=== PATIENT | male | born 1960 | race Caucasian/White ===

== ENCOUNTER 2017-07-22 12:01 | Emergency (ER) | payer MEDICARE | END 2017-07-22 12:31 | disposition home or self-care (01) | LOC: BURERS 12:01 | DX: S73.102A Unspecified sprain of left hip, initial encounter (principal); J44.9 Chronic obstructive pulmonary disease, unspecified; Z79.899 Other long term (current) drug therapy; W01.0XXA Fall on same level from slipping, tripping and stumbling without subsequent striking against object, initial encounter | CPT/HCPCS: 99283 ==

== ENCOUNTER 2018-07-07 11:26 | Inpatient (IN) | payer MEDICARE ==
[2018-07-07 12:17] LABS: ALT (SGPT) 20 U/L (8-55); AST (SGOT) 38 U/L (5-34); Albumin 3.8 g/dL (3.5-5.0); Alkaline Phosphatase 81 U/L (40-150); Anion Gap 13 mmol/L (10-20); BUN (Urea Nitrogen) 7 mg/dL (8.4-25.7); Bilirubin, Total 0.9 mg/dL (0.2-1.2); Calc. Creatinine Clearance 0 mL/min (70-130); Calcium 9.7 mg/dL (7.8-10.44); Carbon Dioxide 28 mmol/L (22-29); Chloride 102 mmol/L (98-107); Estimated GFR-MDRD Greater than 90; Globulin 3.8 g/dL (2.4-3.5); Glucose 107 mg/dL (70-105); Protein, Total 7.6 g/dL (6.0-8.3); Sodium 139 mmol/L (136-145)
[2018-07-07 12:21] LABS: Mean Corpuscular HGB CONC 33.2 g/dL (32.0-36.0); Mean Corpuscular Hemoglobin 31.1 pg (27.0-31.0); Mean Corpuscular Volume 93.6 fL (78.0-98.0); Mean Platelet Volume 7.2 fL (7.4-10.4); Platelet Count 227 thou/uL (130-400); RBC Distribution Width 12.9 % (11.5-14.5); Red Blood Cell (RBC) Count 5.15 mill/uL (4.70-6.10); White Blood Cell (WBC) Count 6.8 thou/uL (4.8-10.8)
[2018-07-07 13:09] LABS: Eosinophils 8 % (0-10); Lymphocytes 24 % (21-51); MDiff Complete? YES; Monocytes 11 % (0-10); Neutrophil 57 % (42-75)
[2018-07-07 14:12] VITALS: BMI 25.4
[2018-07-07 15:11] LABS: Bilirubin Negative (Negative); Blood, Urine Negative (Negative); Clarity Clear (Clear); Glucose, Urine (Dipstick) Negative (Negative); Leukocyte Negative (Negative); Nitrite Negative (Negative); Protein, Urine (Dipstick) Negative (Neg-Trace); pH, Urine 6.5 (5.0-9.0)
[2018-07-07] MEDS ORDERED: Ondansetron ODT 4 MG TAB SL PRN (15:42)
[2018-07-07] MEDS ORDERED: Acetaminophen 325 MG TAB PO PRN (15:42)
[2018-07-07] MEDS ORDERED: Ondansetron PF 4 MG/2 ML Vial IVP PRN (15:42)
[2018-07-07] MEDS: cefTRIAXone\\ROCEPHIN 1 GM in Sodium Chloride 0.9% 100 ML IVPB SCH (16:33)
--- NOTE | 2018-07-07 17:49 | RAD ---
LEFT LEG TWO VIEWS: Date: 07-07-18 FINDINGS: No fracture or area of bony destruction was seen. No periosteal reaction of concern was noted at this time. The bones appear intact. IMPRESSION: No acute bony finding. POS: HOME
[2018-07-07] MEDS ORDERED: fentaNYL 50 mcg/hour Patch TD SCH (18:00)
[2018-07-07] MEDS ORDERED: ALPRAZolam 0.5 MG TAB PO SCH ×2 (19:15→21:00)
[2018-07-07] MEDS: Famotidine 20 MG TAB PO SCH (20:17)
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
[2018-07-07] MEDS ORDERED: Clindamycin 150 MG CAP PO SCH (21:00)
[2018-07-08] MEDS: Vancomycin HCl 1 GM in Sodium Chloride 0.9% 250 ML 250 ML IVPB SCH ×2 (00:45→12:58)
[2018-07-08] MEDS: Morphine ER 15 MG TAB PO PRN ×2 (02:39→14:27)
[2018-07-08 05:11] LABS: #Basophils 0.1 thou/uL (0.0-0.2); #Eosinphils 0.6 thou/uL (0.0-0.7); #Lymphocytes 1.9 thou/uL (1.20-3.40); #Monocytes 0.5 thou/uL (0.11-0.59); #Neutrophils 4.4 thou/uL (1.40-6.50); %Basophils 1.6 % (0.0-1.0); %Eosinophils 8.4 % (0.0-10.0); %Monocytes 6.9 % (0.0-10.0); %Neutrophils 58.2 % (42.0-75.0); Hemoglobin 13.9 g/dL (14.0-18.0); Mean Corpuscular HGB CONC 33.4 g/dL (32.0-36.0); Mean Corpuscular Hemoglobin 31.3 pg (27.0-31.0); Mean Corpuscular Volume 93.6 fL (78.0-98.0); Mean Platelet Volume 6.7 fL (7.4-10.4); Platelet Count 187 thou/uL (130-400); RBC Distribution Width 12.7 % (11.5-14.5); Red Blood Cell (RBC) Count 4.44 mill/uL (4.70-6.10); White Blood Cell (WBC) Count 7.6 thou/uL (4.8-10.8)
[2018-07-08 05:26] LABS: ALT (SGPT) 16 U/L (8-55); AST (SGOT) 31 U/L (5-34); Albumin 3.3 g/dL (3.5-5.0); Alkaline Phosphatase 69 U/L (40-150); Anion Gap 11 mmol/L (10-20); BUN (Urea Nitrogen) 5 mg/dL (8.4-25.7); Bilirubin, Total 0.6 mg/dL (0.2-1.2); Calc. Creatinine Clearance 135 mL/min (70-130); Calcium 9.2 mg/dL (7.8-10.44); Carbon Dioxide 27 mmol/L (22-29); Chloride 106 mmol/L (98-107); Estimated GFR-MDRD Greater than 90; Glucose 107 mg/dL (70-105); Potassium 3.8 mmol/L (3.5-5.1); Protein, Total 6.3 g/dL (6.0-8.3); Sodium 140 mmol/L (136-145)
[2018-07-08] MEDS: Enoxaparin Sodium 30 MG/0.3 ML SYRINGE SC SCH (09:04)
[2018-07-08] MEDS: Aspirin 325 MG TAB PO SCH (09:04)
[2018-07-08] MEDS: Famotidine 20 MG TAB PO SCH ×2 (09:05→21:04)
[2018-07-08] MEDS: Saccharomyces boulardii 250 MG CAP PO SCH (09:05)
[2018-07-08] MEDS: ALPRAZolam 0.5 MG TAB PO SCH ×3 (09:05→21:03)
[2018-07-08] MEDS ORDERED: VANCOMYCIN IVPB PRN (14:51)
[2018-07-08] MEDS: cefTRIAXone\\ROCEPHIN 1 GM in Sodium Chloride 0.9% 100 ML IVPB SCH (16:22)
[2018-07-08] MEDS: SYMBICORT 80/4.5 INH SCH (18:06)
[2018-07-08] MEDS ORDERED: Mometasone/Formoterol 60 PUFF AER INH SCH (19:00)
[2018-07-09 00:48] LABS: Vancomycin, Trough 9.9 ug/mL
[2018-07-09] MEDS: Vancomycin HCl 1 GM in Sodium Chloride 0.9% 250 ML 250 ML IVPB SCH ×2 (01:18→12:36)
[2018-07-09] MEDS: Morphine ER 15 MG TAB PO PRN ×2 (03:04→11:41)
[2018-07-09 03:17] LABS: Hemoglobin 14.4 g/dL (14.0-18.0); Platelet Count 165 thou/uL (130-400)
[2018-07-09 03:35] LABS: Calc. Creatinine Clearance 133 mL/min (70-130); Estimated GFR-MDRD Greater than 90
[2018-07-09] MEDS: SYMBICORT 80/4.5 INH SCH ×2 (06:05→18:24)
[2018-07-09] MEDS: Enoxaparin Sodium 30 MG/0.3 ML SYRINGE SC SCH (09:16)
[2018-07-09] MEDS: Saccharomyces boulardii 250 MG CAP PO SCH (09:17)
[2018-07-09] MEDS: Aspirin 325 MG TAB PO SCH (09:18)
[2018-07-09] MEDS: ALPRAZolam 0.5 MG TAB PO SCH ×3 (09:18→20:20)
[2018-07-09] MEDS: Famotidine 20 MG TAB PO SCH ×2 (09:18→20:20)
[2018-07-09] MEDS: cefTRIAXone\\ROCEPHIN 1 GM in Sodium Chloride 0.9% 100 ML IVPB SCH (16:25)
[2018-07-10] MEDS: Morphine ER 15 MG TAB PO PRN ×2 (00:37→13:27)
[2018-07-10] MEDS: Vancomycin HCl 1 GM in Sodium Chloride 0.9% 250 ML 250 ML IVPB SCH ×2 (00:37→13:10)
[2018-07-10 02:01] LABS: Vancomycin, Trough 11.2 ug/mL
[2018-07-10 05:51] VITALS: BP 138/69; TEMP 97.7
[2018-07-10] MEDS: SYMBICORT 80/4.5 INH SCH (06:16)
[2018-07-10] MEDS: ALPRAZolam 0.5 MG TAB PO SCH ×2 (09:23→14:29)
[2018-07-10] MEDS: Saccharomyces boulardii 250 MG CAP PO SCH (09:23)
[2018-07-10] MEDS: Famotidine 20 MG TAB PO SCH (09:23)
[2018-07-10] MEDS: Enoxaparin Sodium 30 MG/0.3 ML SYRINGE SC SCH (09:24)
[2018-07-10] MEDS: Aspirin 325 MG TAB PO SCH (09:24)
--- NOTE | 2018-07-11 05:08 | DIS ---
DATE OF ADMISSION: 07/07/2018 DATE OF DISCHARGE: 07/10/2018 ADMISSION DIAGNOSIS: Cellulitis of the left lower extremity with failed outpatient antibiotics. SECONDARY DIAGNOSES: Hypertension, chronic pain syndrome, impairment of gait, and anxiety. PROCEDURE: On 07/07/2018; x-ray of tibia/fibula shows no acute bony finding. HOSPITAL COURSE: A 58-year-old patient of Dr. Mansfield, who presented to [facility] Emergency Department with worsening infection involving his distal anterior left lower extremity. The patient had sustained an abrasion to this area 1 to 2 weeks prior and was seen in the outpatient setting by Dr. Mansfield, who initiated treatment with clindamycin; however, the patient reports gradual worsening of skin findings with further ulceration of the localized wound. Blood and wound cultures were obtained, and the patient was started empirically on Rocephin and vancomycin. He was subsequently admitted secondary to failed outpatient p.o. antibiotics. The patient did remain afebrile during his stay without leukocytosis. He received wound care daily with noted improvement in the appearance of the wound. As far as his cultures, he did have one of two blood cultures show gram-positive cocci. However, this is deemed to be more likely a contaminant secondary to his afebrile state with no leukocytosis. Preliminary bacterial culture revealed Aeromonas hydrophila/caviae and second organism, Pseudomonas putida along with non-hemolytic streptococcus species. These organisms are sensitive to all but ampicillin/sulbactam and cefazolin. Due to the patient's improving status and his wanting to go home, he is agreeable to transition to p.o. antibiotics to take at home based on these cultures with finalization and to be reviewed tomorrow for completeness; he will be discharged home on a course of levofloxacin according to these cultures. He has been set up with [facility] to receive further wound care therapy. DISPOSITION: The patient will be discharged to his home setting and will have [facility] for further wound care therapy. He may follow up with his primary care provider, Dr. Mansfield next week. DISCHARGE MEDICATIONS: Two new medicines will include, 1. Levofloxacin 500 mg p.o. daily x7 days. 2. Florastor 250 mg p.o. b.i.d. x10 days. He will resume his usual medications, which include, 1. Xanax 1 mg p.o. t.i.d. 2. Aspirin 325 mg p.o. daily. 3. Fentanyl patch 75 mcg q.72 hours. 4. Metoprolol succinate 100 mg p.o. daily. 5. Morphine ER 60 mg p.o. b.i.d. p.r.n. Job ID: [id number]
== END 2018-07-10 17:17 | disposition home health service (06) | DRG 603 ==
LOC: BURERS 11:26 → BURMED 13:00
PROVIDERS: ADMIT Family Medicine; ATTEND Family Medicine
DX: L03.116 Cellulitis of left lower limb (principal); I10 Essential (primary) hypertension; F41.9 Anxiety disorder, unspecified; G89.4 Chronic pain syndrome; R26.89 Other abnormalities of gait and mobility; Z87.891 Personal history of nicotine dependence; Z79.82 Long term (current) use of aspirin
CPT/HCPCS: 36415; 80053; 80202; 81003; 82565; 83605; 85014; 85018; 85025; 85049; 87040; 87070; 87077; 87149; 87186; 87205; 97602; J0696; J1650; J3370; J7050

== ENCOUNTER 2019-03-03 15:20 | Inpatient (IN) | payer MEDICARE ==
[2019-03-03 17:09] LABS: Band 3 % (5-11); Eosinophils 2 % (0-10); Hemoglobin 14.2 g/dL (14.0-18.0); Lymphocytes 10 % (21-51); MDiff Complete? YES; Mean Corpuscular HGB CONC 31.7 g/dL (32.0-36.0); Mean Corpuscular Volume 97.8 fL (78.0-98.0); Mean Platelet Volume 7.8 fL (7.4-10.4); Monocytes 6 % (0-10); Neutrophil 79 % (42-75); Platelet Count 184 thou/uL (130-400); RBC Distribution Width 13.3 % (11.5-14.5); Red Blood Cell (RBC) Count 4.59 mill/uL (4.70-6.10); White Blood Cell (WBC) Count 18.3 thou/uL (4.8-10.8)
[2019-03-03 17:12] LABS: Bilirubin Negative (Negative); Blood, Urine Trace (Negative); Clarity Clear (Clear); Glucose, Urine (Dipstick) Negative (Negative); Leukocyte Negative (Negative); Nitrite Negative (Negative); Protein, Urine (Dipstick) Negative (Neg-Trace)
[2019-03-03 17:17] LABS: Bacteria/HPF None Seen HPF (None Seen); Broad Cast None Seen LPF (None Seen); Calcium Oxalate Crystals None Seen HPF (None Seen); Cellular Cast None Seen LPF (None Seen); Epithelial Cast None Seen LPF (None Seen); Fatty Cast None Seen LPF (None Seen); Mucous/LPF None Seen LPF (<2+); Other Casts None Seen LPF (None Seen); Oval Fat Bodies/HPF None Seen HPF (None Seen); RBC/HPF 0-3 HPF (0-3); Red Blood Cell Cast None Seen LPF (None Seen); Renal Epithelial None Seen HPF (None Seen); Sperm/HPF None Seen HPF (None Seen); Squamous Epithelial None Seen HPF (0-3); Transitional Epithelial None Seen HPF (None Seen); Trichomonas/HPF None Seen HPF (None Seen); Triple Phosphate Crystal None Seen HPF (None Seen); Unclassified Crystals None Seen HPF (None Seen); WBC/HPF None Seen HPF (0-3); Waxy Cast None Seen LPF (None Seen); White Blood Cell Cast None Seen LPF (None Seen); Yeast-Budding None Seen HPF (None Seen); Yeast-Hyphae None Seen HPF (None Seen)
[2019-03-03 17:22] LABS: ALT (SGPT) 19 U/L (8-55); AST (SGOT) 31 U/L (5-34); Albumin 3.8 g/dL (3.5-5.0); Alkaline Phosphatase 156 U/L (40-110); Anion Gap 16 mmol/L (10-20); BUN (Urea Nitrogen) 9 mg/dL (8.4-25.7); Bilirubin, Total 1.8 mg/dL (0.2-1.2); Calc. Creatinine Clearance 0 mL/min (70-130); Calcium 9.5 mg/dL (7.8-10.44); Carbon Dioxide 25 mmol/L (22-29); Chloride 99 mmol/L (98-107); Estimated GFR-MDRD Greater than 90; Globulin 4.1 g/dL (2.4-3.5); Glucose 96 mg/dL (70-105); Lipase 13 U/L (8-78); Potassium 4.9 mmol/L (3.5-5.1); Protein, Total 7.9 g/dL (6.0-8.3); Sodium 135 mmol/L (136-145)
[2019-03-03] MEDS ORDERED: Sodium Chloride 0.9% 100 ML ONE (17:24)
[2019-03-03] MEDS ORDERED: Piperacillin/Tazobactam 4.5 GM VIAL ONE (17:24)
[2019-03-03 18:56] VITALS: BMI 26.4
[2019-03-03] MEDS ORDERED: Ondansetron PF 4 MG/2 ML Vial SLOW IVP PRN (19:13)
[2019-03-03] MEDS ORDERED: Ondansetron ODT 4 MG TAB PO PRN (19:13)
[2019-03-03] MEDS: Ibuprofen 600 MG TAB PO PRN (20:45)
[2019-03-03] MEDS ORDERED: fentaNYL 50 mcg/hour Patch TD SCH (22:00)
[2019-03-03] MEDS: Morphine ER 15 MG TAB PO PRN (22:18)
--- NOTE | 2019-03-03 22:27 | RAD ---
CHEST TWO VIEWS: 03/03/19 Comparison is made with the 10/22/07 study. Elevation of the right hemidiaphragm is chronic. Some basilar streaking on the right is chronic. Neve rtheless, the lung markings in the right lung base seem increased with respect to the old film. Addit ionally, there is now some blunting of the left costophrenic angle that was not present before. This could be fluid, infiltrate or both. The findings suggest the possibility of pneumonia in each lung ba se. The upper lobes are clear. The heart size is normal. There are no congestive changes. IMPRESSION: Acute changes on top of chronic. Suspicious for basilar infiltrates that are likely acute. POS: HOME
[2019-03-04] MEDS: Piperacillin/Tazobactam 4.5 GM in Sodium Chloride 0.9% 100 ML IVPB SCH ×3 (00:14→11:40)
[2019-03-04] MEDS: Albuterol Sulfate 2.5 mg/3 ml Neb NEB SCH ×4 (00:16→20:27)
[2019-03-04 04:29] LABS: Anion Gap 13 mmol/L (10-20); BUN (Urea Nitrogen) 9 mg/dL (8.4-25.7); Calc. Creatinine Clearance 124 mL/min (70-130); Calcium 8.6 mg/dL (7.8-10.44); Carbon Dioxide 27 mmol/L (22-29); Chloride 105 mmol/L (98-107); Estimated GFR-MDRD Greater than 90; Glucose 106 mg/dL (70-105); Potassium 3.9 mmol/L (3.5-5.1); Sodium 141 mmol/L (136-145)
[2019-03-04 04:46] LABS: #Basophils 0.3 thou/uL (0.0-0.2); #Eosinphils 0.4 thou/uL (0.0-0.7); #Lymphocytes 1.5 thou/uL (1.20-3.40); #Monocytes 0.8 thou/uL (0.11-0.59); #Neutrophils 11.5 thou/uL (1.40-6.50); %Basophils 2.3 % (0.0-1.0); %Eosinophils 2.7 % (0.0-10.0); %Lymphocytes 10.2 % (21.0-51.0); %Monocytes 5.3 % (0.0-10.0); %Neutrophils 79.5 % (42.0-75.0); Hemoglobin 12.7 g/dL (14.0-18.0); Mean Corpuscular HGB CONC 31.6 g/dL (32.0-36.0); Mean Corpuscular Volume 98.2 fL (78.0-98.0); Mean Platelet Volume 7.8 fL (7.4-10.4); Platelet Count 144 thou/uL (130-400); RBC Distribution Width 13.6 % (11.5-14.5); White Blood Cell (WBC) Count 14.4 thou/uL (4.8-10.8)
[2019-03-04] MEDS: Saccharomyces boulardii 250 MG CAP PO SCH ×2 (08:41→20:26)
[2019-03-04] MEDS: ALPRAZolam 0.5 MG TAB PO SCH ×3 (08:41→20:26)
[2019-03-04] MEDS: Aspirin 325 MG TAB PO SCH (08:41)
[2019-03-04] MEDS: Glecaprevir/Pibrentasvir [Mavyret 100-40 Mg Tablet] PO SCH (08:41)
[2019-03-04] MEDS: Enoxaparin Sodium 40 MG/0.4 ML SYRINGE SC SCH (08:42)
[2019-03-04] MEDS: Morphine ER 15 MG TAB PO PRN ×2 (10:13→22:25)
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
[2019-03-04] MEDS ORDERED: Sterile Water 10 ML ONE (20:20)
[2019-03-04] MEDS: Mometasone/Formoterol 60 PUFF AER INH SCH (20:26)
[2019-03-04] MEDS: cefTRIAXone\\ROCEPHIN 1 GM VIAL IM SCH (20:29)
[2019-03-04] MEDS: Sterile Water 10 ML VIAL FS SCH (20:30)
[2019-03-04] MEDS ORDERED: FLU VACC QS2019-20(6MOS UP)/PF 60 MCG/0.5 ML SYRINGE IM ONE (21:00)
[2019-03-05] MEDS: Albuterol Sulfate 2.5 mg/3 ml Neb NEB SCH ×4 (01:24→17:54)
[2019-03-05] MEDS: Mometasone/Formoterol 60 PUFF AER INH SCH (05:32)
[2019-03-05] MEDS: Ibuprofen 600 MG TAB PO PRN (05:43)
[2019-03-05] MEDS: Enoxaparin Sodium 40 MG/0.4 ML SYRINGE SC SCH (09:07)
[2019-03-05] MEDS: Saccharomyces boulardii 250 MG CAP PO SCH (09:07)
[2019-03-05] MEDS: ALPRAZolam 0.5 MG TAB PO SCH ×2 (09:07→14:59)
[2019-03-05] MEDS: Aspirin 325 MG TAB PO SCH (09:09)
[2019-03-05] MEDS: Sterile Water 10 ML VIAL FS SCH (09:09)
[2019-03-05] MEDS: cefTRIAXone\\ROCEPHIN 1 GM VIAL IM SCH (09:10)
[2019-03-05] MEDS: Glecaprevir/Pibrentasvir [Mavyret 100-40 Mg Tablet] PO SCH (09:13)
[2019-03-05 09:15] LABS: #Basophils 0.1 thou/uL (0.0-0.2); #Eosinphils 0.6 thou/uL (0.0-0.7); #Lymphocytes 1.1 thou/uL (1.20-3.40); #Monocytes 0.6 thou/uL (0.11-0.59); #Neutrophils 6.7 thou/uL (1.40-6.50); %Eosinophils 6.8 % (0.0-10.0); %Lymphocytes 12.5 % (21.0-51.0); %Monocytes 6.1 % (0.0-10.0); %Neutrophils 73.7 % (42.0-75.0); Hemoglobin 12.6 g/dL (14.0-18.0); Mean Corpuscular HGB CONC 31.2 g/dL (32.0-36.0); Mean Corpuscular Hemoglobin 30.7 pg (27.0-31.0); Mean Corpuscular Volume 98.6 fL (78.0-98.0); Mean Platelet Volume 8.1 fL (7.4-10.4); Platelet Count 145 thou/uL (130-400); RBC Distribution Width 13.6 % (11.5-14.5); White Blood Cell (WBC) Count 9.1 thou/uL (4.8-10.8)
[2019-03-05] MEDS: Morphine ER 15 MG TAB PO PRN (10:22)
[2019-03-05 17:24] VITALS: BP 119/73; TEMP 97.6
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
[2019-03-06] MEDS ORDERED: FENTANYL 75 MCG/HR TOP SCH (09:00)
== END 2019-03-05 18:55 | disposition home or self-care (01) | DRG 194 ==
LOC: BURERS 15:20 → BURMED 17:56
PROVIDERS: ADMIT Family Medicine; ATTEND Family Medicine
DX: J18.9 Pneumonia, unspecified organism (principal); J44.0 Chronic obstructive pulmonary disease with (acute) lower respiratory infection; I10 Essential (primary) hypertension; G89.29 Other chronic pain; Z87.891 Personal history of nicotine dependence; Z93.0 Tracheostomy status; Z79.82 Long term (current) use of aspirin; B19.20 Unspecified viral hepatitis C without hepatic coma; F43.10 Post-traumatic stress disorder, unspecified; F41.9 Anxiety disorder, unspecified; D72.829 Elevated white blood cell count, unspecified
CPT/HCPCS: 36415; 71046; 80048; 80053; 81003; 81015; 83605; 83690; 84484; 85025; 85379; 87040; 87070; 87205; 87804; 93005; 94760; 96361; 96365; J0696; J1650; J1956; J2543; J3490; J7611

== ENCOUNTER 2019-03-31 08:52 | Outpatient (CLI) | payer MEDICARE ==
--- NOTE | 2019-03-31 14:54 | ULT ---
HEPATIC ULTRASOUND WITH HEPATIC DOPPLER STUDY: 03/31/2019 TECHNIQUE: Ultrasonography of the right upper quadrant was performed in this patient with hepatitis C. Documenta ry images and worksheets were provided and reviewed. FINDINGS: The patient does not image extremely well by ultrasound so the study is slightly limited. The liver contains no sign of space occupying disease or dilated ducts. It measured 12 cm in sagittal length. Doppler analysis of the hepatic blood supply shows normal flow dynamics. Portal venous blood flow tra vels toward the liver and flow in the hepatic veins was away from the liver. The pancreas is not seen well due to bowel gas. The gallbladder contains no signs of stones or wall t hickening. The common bile duct is a normal 4 mm wide. The inferior vena cava is unremarkable. The ao rta is not shown. The right kidney appears normal and is 8.3 cm long. IMPRESSION: 1. Mildly limited examination but no acute findings. 2. Specifically, no focal hepatic abnormality. Normal hepatic blood flow. POS: HOME
== END 2019-03-31 08:53 | disposition home or self-care (01) ==
LOC: BURULT 08:52
PROVIDERS: ATTEND Internal Medicine Gastroenterology
DX: Z12.11 Encounter for screening for malignant neoplasm of colon (principal); B18.2 Chronic viral hepatitis C
CPT/HCPCS: 76705

== ENCOUNTER 2019-06-29 09:44 | Emergency (ER) | payer MEDICARE, OTHER | END 2019-06-29 10:50 | disposition home or self-care (01) | LOC: BURERS 09:44 | DX: L03.116 Cellulitis of left lower limb (principal); I10 Essential (primary) hypertension; J44.9 Chronic obstructive pulmonary disease, unspecified; E03.9 Hypothyroidism, unspecified; Z87.891 Personal history of nicotine dependence; Z79.82 Long term (current) use of aspirin; Z79.899 Other long term (current) drug therapy | CPT/HCPCS: 10060 ==

== ENCOUNTER 2019-08-04 19:47 | Emergency (ER) | payer MEDICARE, OTHER | END 2019-08-04 20:05 | disposition home or self-care (01) | LOC: BURERS 19:47 | DX: S80.12XA Contusion of left lower leg, initial encounter (principal); I10 Essential (primary) hypertension; J44.9 Chronic obstructive pulmonary disease, unspecified; E03.9 Hypothyroidism, unspecified; Z87.891 Personal history of nicotine dependence; Z79.899 Other long term (current) drug therapy; Z79.82 Long term (current) use of aspirin; W22.8XXA Striking against or struck by other objects, initial encounter | CPT/HCPCS: 10140 ==

== ENCOUNTER 2020-11-12 08:57 | Emergency (ER) | payer MEDICARE ==
[2020-11-12] MEDS ORDERED: Lidocaine 1% w/Epinephrine 1:100K 20 ML VIAL ONE (09:27)
[2020-11-12] MEDS ORDERED: Ondansetron ODT 4 MG TAB ONE (09:29)
[2020-11-12] MEDS ORDERED: Bacitracin 1 PK ONE (09:46)
== END 2020-11-12 09:53 | disposition home or self-care (01) ==
LOC: BURERS 08:57
DX: S80.11XA Contusion of right lower leg, initial encounter (principal); I10 Essential (primary) hypertension; J44.9 Chronic obstructive pulmonary disease, unspecified; E03.9 Hypothyroidism, unspecified; Z87.891 Personal history of nicotine dependence; Z79.899 Other long term (current) drug therapy; W22.8XXA Striking against or struck by other objects, initial encounter
CPT/HCPCS: 10140; Q0162

== ENCOUNTER 2021-11-29 19:14 | Emergency (ER) | payer OTHER, MEDICARE ==
[2021-11-29] MEDS ORDERED: Ketorolac Tromethamine 30 MG/ML VIAL ONE (20:11)
== END 2021-11-29 20:33 | disposition home or self-care (01) ==
LOC: BURERS 19:14
DX: S92.332A Displaced fracture of third metatarsal bone, left foot, initial encounter for closed fracture (principal); S92.342A Displaced fracture of fourth metatarsal bone, left foot, initial encounter for closed fracture; E03.9 Hypothyroidism, unspecified; I10 Essential (primary) hypertension; J44.9 Chronic obstructive pulmonary disease, unspecified; Z87.891 Personal history of nicotine dependence; Z79.899 Other long term (current) drug therapy; Z79.82 Long term (current) use of aspirin; W18.42XA Slipping, tripping and stumbling without falling due to stepping into hole or opening, initial encounter
CPT/HCPCS: J1885

== ENCOUNTER 2022-10-21 11:57 | Emergency (ER) | payer MEDICARE ==
[2022-10-21 12:52] LABS: #Basophils 0.1 thou/uL (0.0-0.2); #Eosinphils 0.5 thou/uL (0.0-0.7); #Lymphocytes 1.1 thou/uL (1.20-3.40); #Monocytes 0.5 thou/uL (0.11-0.59); #Neutrophils 5.9 thou/uL (1.40-6.50); %Basophils 1.8 % (0.0-1.0); %Eosinophils 5.8 % (0.0-10.0); %Lymphocytes 14.1 % (21.0-51.0); %Monocytes 5.9 % (0.0-10.0); %Neutrophils 72.5 % (42.0-75.0); Mean Corpuscular Hemoglobin 31.2 pg (27.0-31.0); Mean Corpuscular Volume 94.6 fl (78.0-98.0); Platelet Count 218 10x3/uL (130-400); RBC Distribution Width 12.2 % (11.5-14.5); Red Blood Cell (RBC) Count 5.11 mill/uL (4.70-6.10); White Blood Cell (WBC) Count 8.1 10x3/uL (4.8-10.8)
[2022-10-21 13:07] LABS: ALT (SGPT) 15 U/L (8-55); AST (SGOT) 20 U/L (5-34); Albumin 4.2 g/dL (3.4-4.8); Alkaline Phosphatase 89 U/L (40-110); Anion Gap 12 mmol/L (10-20); BUN (Urea Nitrogen) 8 mg/dL (8.4-25.7); Bilirubin, Total 0.5 mg/dL (0.2-1.2); Calc. Creatinine Clearance 0 mL/min (70-130); Calcium 9.7 mg/dL (7.8-10.44); Carbon Dioxide 27 mmol/L (23-31); Chloride 104 mmol/L (98-107); Estimated GFR 101; Globulin 3.7 g/dL (2.4-3.5); Glucose 96 mg/dL (80-115); Potassium 3.9 mmol/L (3.5-5.1); Protein, Total 7.9 g/dL (5.8-8.1); Sodium 139 mmol/L (136-145)
== END 2022-10-21 16:05 | disposition home or self-care (01) ==
LOC: BURERS 11:57
DX: K40.90 Unilateral inguinal hernia, without obstruction or gangrene, not specified as recurrent (principal); I10 Essential (primary) hypertension; J44.9 Chronic obstructive pulmonary disease, unspecified; E03.9 Hypothyroidism, unspecified; F17.220 Nicotine dependence, chewing tobacco, uncomplicated; Z79.899 Other long term (current) drug therapy; Z79.82 Long term (current) use of aspirin
CPT/HCPCS: 72192; 80053; 83605; 85025

== ENCOUNTER 2023-06-27 13:22 | Emergency (ER) | payer MEDICARE, OTHER | END 2023-06-27 14:40 | disposition left against medical advice (07) | LOC: BURERS 13:22 | DX: Z53.21 Procedure and treatment not carried out due to patient leaving prior to being seen by health care provider (principal) ==

== ENCOUNTER 2023-06-28 11:53 | Emergency (ER) | payer MEDICARE, OTHER ==
[2023-06-28] MEDS ORDERED: Boostrix 0.5 ML (Tdap) VIAL (>/=7 yrs of age) ONE (12:29)
== END 2023-06-28 12:48 | disposition home or self-care (01) ==
LOC: BURERS 11:53
DX: S81.852A Open bite, left lower leg, initial encounter (principal); I10 Essential (primary) hypertension; J44.9 Chronic obstructive pulmonary disease, unspecified; W54.0XXA Bitten by dog, initial encounter
CPT/HCPCS: 90471; 90715

== ENCOUNTER 2023-12-09 11:16 | Emergency (ER) | payer MEDICARE ==
[2023-12-09] MEDS ORDERED: HYDROcodone/Acetaminophen 5/325 mg Tablet ONE ×2 (11:53→12:52)
== END 2023-12-09 12:52 | disposition home or self-care (01) ==
LOC: BURERS 11:16
DX: S80.11XA Contusion of right lower leg, initial encounter (principal); S90.31XA Contusion of right foot, initial encounter; I10 Essential (primary) hypertension; J44.9 Chronic obstructive pulmonary disease, unspecified; W19.XXXA Unspecified fall, initial encounter